=== PATIENT | female | born 1930 | race Caucasian/White ===

== ENCOUNTER 2017-10-12 09:23 | Emergency (ER) | payer MEDICARE, OTHER ==
[~2017-10-12] VITALS: Wt 55.5 kg
[~2017-10-12 09:23] MED LIST: ALEN70TA30 PO; ASC500 PO; ASPI-664 PO; ATOR10TA65 PO; CARV12.598 PO; HYDR-906 PO; LISI10TA2 PO; LOSA50TA6 PO; NITR-58 PO; ONDA4TAB14 PO; PANT40TA3 PO
[2017-10-12] MEDS ORDERED: IBUPROFEN 200 MG TAB PO ONE (10:30)
[2017-10-12] MEDS ORDERED: LOSA1TAB19 PO (10:57)
[2017-10-12] MEDS ORDERED: APIX2.5T PO (10:57)
--- NOTE | 2017-10-12 11:29 | RADRPT ---
PROCEDURE: CR Left Elbow CLINICAL INDICATION: Trauma TECHNIQUE: AP, lateral, and an oblique radiographs were submitted. COMPARISON: None FINDINGS: Osseous Structures: There is mild deformity to the lateral left radial head which may be a sequelae of old trauma. No acute fracture is identified. Joint Spaces: Mild degenerative changes seen about the elbow joint space. There are positive fat pad signs indicating fluid accumulation within the joint capsule. A 1.3 x 0.8 cm osteochondral loose dimple dy is seen within the anterior joint capsule. Soft Tissues: Appear unremarkable. IMPRESSION: 1. Mild deformity to the left radial head which is likely a sequelae of old trauma. 2. An osteochondral loose body projects to the anterior joint capsule and there is fluid accumulati on within the joint capsule. 3. Mild degenerative change seen about the elbow joint. Physician Alena Date Time Electronically viewed and signed by Eric Alberto Physician on 10/12/2017 11:29 /
[2017-10-12] MEDS ORDERED: IBUP400T22 PO (12:08)
--- NOTE | 2017-10-12 12:12 | ERD ---
ER Documentation Chief Complaint Chief Complaint l. elbow pain since thu, denies trauma HPI This is a 87-year-old female complaining of left elbow pain. The patient states she has had pain for 3 days. The patient says the pain is located at the lateral aspect of her left elbow but there is pain when she flexes it. No trauma no swelling no erythema no fever no numbness or weakness. No chest pain shortness of breath no jaw pain diaphoresis nausea ROS All systems reviewed and are negative except as per history of present illness. Medications Home Meds Active Scripts Ibuprofen* (Motrin*) 400 Mg Tab, 400 MG PO Q8, #30 TAB Prov:RAYMUNDO WOLF DO 10/12/17 Reported Medications Losartan-Hydrochlorothiazide (Losartan-HCTZ) 50-12.5 Mg Tab, 1 TAB PO DAILY, TAB 10/12/17 Apixaban* (Eliquis*) 2.5 Mg Tablet, 2.5 MG PO BID, TAB 10/12/17 Atorvastatin Calcium (Atorvastatin Calcium) 10 Mg Tablet, 10 MG PO QHS, #30 TAB 09/28/16 Alendronate Sodium* (Fosamax*) 70 Mg Tablet, 70 MG PO Q7D, TAB 01/31/15 Carvedilol* (Coreg*) 12.5 Mg Tablet, 12.5 MG PO BID 02/13/14 Discontinued Reported Medications Aspirin (Low Dose Aspirin) 81 Mg Tablet.dr, 81 MG PO DAILY, #30 TAB 09/28/16 Lisinopril* (Lisinopril*) 10 Mg Tablet, 10 MG PO BID, #30 TAB 09/28/16 Losartan Potassium* (Losartan Potassium*) 50 Mg Tablet, 50 MG PO DAILY, TAB 09/28/16 Pantoprazole* (Protonix*) 40 Mg Tablet.dr, 40 MG PO DAILY, TAB 09/28/16 Ascorbic Acid (Vitamin C) 500 Mg Tab, 500 MG PO DAILY, TAB 02/13/14 Discontinued Scripts Ondansetron (Ondansetron Odt) 4 Mg Tab.rapdis, 4 MG PO Q6H Y for NAUSEA AND/OR VOMITING, #30 TAB Prov:CAROL JAMES MD 09/28/16 Hydrocodone/Acetaminophen ([place] 5-325 Tablet) 1 Each Tablet, 1 TAB PO Q6H Y for PAIN, #7 TAB Prov:CAROL JAMES MD 09/28/16 Nitrofurantoin Monohyd Macrocr* (Macrobid*) 100 Mg Capsr, 100 MG PO BID for 7 Days, CAP Prov:CAROL JAMES MD 09/28/16 Allergies Allergies: Coded Allergies: No Known Allergy (Verified , 10/12/17) PMhx/Soc History of Surgery: Yes (right mastectomy, pacemaker placement) Anesthesia Reaction: No Hx Neurological Disorder: No Hx Respiratory Disorders: Yes (copd) Hx Cardiac Disorders: Yes (HTN, pacer) Hx Psychiatric Problems: No Hx Miscellaneous Medical Probl: Yes Hx Alcohol Use: No Hx Substance Use: No Hx Tobacco Use: No FmHx Family History: No coronary disease Physical Exam Vitals Vital Signs Date Time Temp Pulse Resp B/P Pulse Ox O2 Delivery O2 Flow Rate FiO2 10/12/17 09:29 98.8 60 20 159/73 97 Physical Exam Const: Well-developed, well-nourished Head: Atraumatic, normocephalic Eyes: Normal Conjunctiva, PERRLA, EOMI, normal sclera, no nystagmus ENT: Normal External Ears, Nose and Mouth, moist mucus membranes. Neck: Full range of motion. No meningismus, no lymphadenopathy. Resp: Clear to auscultation bilaterally, no wheezing, rhonchi, rales Cardio: Regular rate and rhythm, no murmurs, S1 S2 present Abd: Soft, non tender x 4, non distended. Normal bowel sounds, no guarding or rebound, no pulsitile abdominal masses or bruits Skin: No petechiae or rashes, no ecchymosis , no maculopapular rash Back: No midline or flank tenderness Ext: No cyanosis, or edema, FROM x 4, there is tenderness to the radial head on the left elbow. There is full range of motion there is some pain at the full flexion. There is no signs of a septic elbow there is no swelling no erythema normal inspection, neurovascularly intact x 4 Neur: Awake and alert, STR 5/5 x 4, sensation intact x 4, no focal findings, cerebellum intact Psych: Normal Mood and Affect Results 24 hrs Current Medications Medications (Trade) Dose Ordered Sig/Todd Route PRN Reason Start Time Stop Time Status Last Admin Dose Admin Ibuprofen (Motrin) 400 mg ONCE ONCE PO 10/12/17 10:30 10/12/17 10:31 DC 10/12/17 10:35 Procedures/MDM PROCEDURE: CR Left Elbow CLINICAL INDICATION: Trauma TECHNIQUE: AP, lateral, and an oblique radiographs were submitted. COMPARISON: None FINDINGS: Osseous Structures: There is mild deformity to the lateral left radial head which may be a sequelae of old trauma. No acute fracture is identified. Joint Spaces: Mild degenerative changes seen about the elbow joint space. There are positive fat pad signs indicating fluid accumulation within the joint capsule. A 1.3 x 0.8 cm osteochondral loose body is seen within the anterior joint capsule. Soft Tissues: Appear unremarkable. IMPRESSION: 1. Mild deformity to the left radial head which is likely a sequelae of old trauma. 2. An osteochondral loose body projects to the anterior joint capsule and there is fluid accumulation within the joint capsule. 3. Mild degenerative change seen about the elbow joint. Physician Alena Date Time Electronically viewed and signed by Eric Alberto Physician on 10/12/2017 11:29 RH/ CC: RAYMUNDO WOLF DO Patient has a sling already. Patient has some effusion that is likely due to some type of arthritic changes/ arthritis. There is no signs of septic elbow. I did give the patient septic joint precautions to watch for. Departure Diagnosis: Primary Impression: Effusion, left elbow Condition: Stable Patient Instructions: Sprain Elbow, Knee Effusion Referrals: BLANCA LEES MD, APOSTOLOS A. DO Oct 12, 2017 12:12
[2017-10-12 12:25] VITALS: BP 145/78; PULSE 80; RESP 20
== END 2017-10-12 12:27 | disposition home or self-care (01) ==
LOC: E/R 09:23
DX: M25.422 Effusion, left elbow (principal); I10 Essential (primary) hypertension; J44.9 Chronic obstructive pulmonary disease, unspecified; Z79.01 Long term (current) use of anticoagulants; Z79.82 Long term (current) use of aspirin; Z95.0 Presence of cardiac pacemaker

== ENCOUNTER 2018-08-29 21:37 | Emergency (ER) | END 2018-08-30 02:54 | disposition home or self-care (01) ==